=== PATIENT | male | born 1995 | race African-American/Black ===

== ENCOUNTER 2017-09-29 14:22 | Emergency (ER) | payer SELFPAY ==
[~2017-09-29] VITALS: Ht 185.4 cm; Wt 78.0 kg
[~2017-09-29 14:22] MED LIST: MUPIROCIN2 % EX
[2017-09-29 15:16] LABS: URINE BILIRUBIN - DIPSTICK NEGATIVE (NEGATIVE); URINE BLOOD DIPSTICK NEGATIVE (NEGATIVE); URINE COLOR YELLOW; URINE GLUCOSE - DIPSTICK NEGATIVE (NEGATIVE); URINE KETONE TRACE mg/dL (NEGATIVE); URINE NITRITE - DIPSTICK NEGATIVE (Negative); URINE PROTEIN - DIPSTICK TRACE mg/dL (NEG-TRACE); URINE SPECIFIC GRAVITY 1.025
[2017-09-29 15:23] LABS: URINE CLARITY CLEAR; URINE LEUK ESTERASE SMALL (NEGATIVE)
[2017-09-29 15:32] LABS: IMMATURE GRANULOCYTES 0.2 % (0.0-5.0); MEAN CORPUSCULAR HGB 30.6 pG CALC (26.0-32.0); MEAN CORPUSCULAR HGB CONC 34.6 g/L CALC (32.0-36.0); NEUT# 2.73 thou/uL (1.82-7.42); RED BLOOD COUNT 5.06 mill/uL (4.70-6.10); RED CELL DISTRI WIDTH 12.8 % (11.5-15.5)
[2017-09-29 15:35] LABS: URINE SQUAMOUS EPITHELIAL CELL FEW EPI/hpf (0-FEW)
[2017-09-29 15:36] LABS: HEMATOCRIT 44.8 % (39.0-50.0); HEMOGLOBIN 15.5 g/dl (14.0-18.0); MEAN CELL VOLUME 88.5 fL CALC (80.0-100.0)
[2017-09-29 15:55] LABS: ALBUMIN 4.5 g/dL (3.2-5.0); BILIRUBIN, TOTAL 0.4 mg/dL (0.0-1.4); BUN 12 mg/dL (8-21); BUN/CREATININE RATIO 14 (12-20 (CALC)); CARBON DIOXIDE 26 mmol/l (22-30); CHLORIDE 107 mmol/l (95-108); CREATININE 0.8 mg/dL (0.7-1.3); GFR > 60 ML/MIN (>=60 (CALC)); GFR FOR AFR.AMER. > 60 ML/MIN (>=60 (CALC)); LIPASE 133 u/l (23-300); SGOT/AST 24 u/l (17-59); SGPT/ALT 26 u/l (21-72); TOTAL PROTEIN 7.4 g/dL (6.3-8.2)
[2017-09-29 16:00] LABS: ALKALINE PHOSPHATASE 69 u/l (38-126); ANION GAP 14 (6-22 (CALC)); POTASSIUM 4.2 mmol/l (3.5-5.1); SODIUM 143 mmol/l (137-146)
[2017-09-29] MEDS ORDERED: ZOFRAN4 M1 PO (16:00)
[2017-09-29 16:14] VITALS: BP 109/66
== END 2017-09-29 16:22 | disposition home or self-care (01) | DRG 392 ==
LOC: ED 14:22
PROVIDERS: Family Medicine
DX: K52.9 Noninfective gastroenteritis and colitis, unspecified (principal); N39.0 Urinary tract infection, site not specified

== ENCOUNTER 2018-06-29 17:14 | Emergency (ER) | payer SELFPAY ==
[~2018-06-29] VITALS: Ht 185.4 cm; Wt 75.0 kg
[~2018-06-29 17:14] MED LIST changes: +ZOFRAN4 M1 PO
[2018-06-29 18:03] LABS: IMMATURE GRANULOCYTES 0.2 % (0.0-5.0); MEAN CELL VOLUME 89.2 fL CALC (80.0-100.0); MEAN CORPUSCULAR HGB 30.6 pG CALC (26.0-32.0); MEAN CORPUSCULAR HGB CONC 34.4 g/L CALC (32.0-36.0); NEUT# 2.6 thou/uL (1.82-7.42); RED BLOOD COUNT 4.34 mill/uL (4.70-6.10); RED CELL DISTRI WIDTH 12.7 % (11.5-15.5)
[2018-06-29 18:07] LABS: HEMATOCRIT 38.7 % (39.0-50.0); HEMOGLOBIN 13.3 g/dl (14.0-18.0)
[2018-06-29 18:16] LABS: ANION GAP 14 (6-22 (CALC)); BUN 13 mg/dL (9-20); BUN/CREATININE RATIO 15 (12-20 (CALC)); CARBON DIOXIDE 23 mmol/l (22-30); CHLORIDE 109 mmol/l (95-108); CREATININE 0.9 mg/dL (0.7-1.3); GFR > 60 ML/MIN (>=60 (CALC)); GFR FOR AFR.AMER. > 60 ML/MIN (>=60 (CALC)); POTASSIUM 3.7 mmol/l (3.5-5.1); SODIUM 142 mmol/l (137-146)
[2018-06-29 18:51] VITALS: BP 98/60
== END 2018-06-29 18:51 | disposition home or self-care (01) | DRG 312 ==
LOC: ED 17:14
PROVIDERS: Family Medicine
DX: R55 Syncope and collapse (principal); R42 Dizziness and giddiness; R00.1 Bradycardia, unspecified; F17.290 Nicotine dependence, other tobacco product, uncomplicated; Y92.810 Car as the place of occurrence of the external cause

== ENCOUNTER 2018-08-04 11:39 | Emergency (ER) | payer MEDICAID ==
[~2018-08-04] VITALS: Ht 185.4 cm; Wt 77.0 kg
[2018-08-04 12:34] LABS: URINE BILIRUBIN - DIPSTICK NEGATIVE (NEGATIVE); URINE BLOOD DIPSTICK NEGATIVE (NEGATIVE); URINE COLOR YELLOW; URINE GLUCOSE - DIPSTICK NEGATIVE (NEGATIVE); URINE KETONE NEGATIVE (NEGATIVE); URINE LEUK ESTERASE TRACE (NEGATIVE); URINE NITRITE - DIPSTICK NEGATIVE (Negative); URINE PH 5.5 (4.5-8.0); URINE PROTEIN - DIPSTICK NEGATIVE (NEG-TRACE); URINE SPECIFIC GRAVITY 1.025; URINE UROBILINOGEN - DIPSTICK 0.2 E.U./dL (0.2)
[2018-08-04 13:01] LABS: HEMATOCRIT 39.2 % (39.0-50.0); IMMATURE GRANULOCYTES 0.2 % (0.0-5.0); MEAN CORPUSCULAR HGB 30.5 pG CALC (26.0-32.0); MEAN CORPUSCULAR HGB CONC 33.2 g/L CALC (32.0-36.0); NEUT# 2.17 thou/uL (1.82-7.42); RED BLOOD COUNT 4.26 mill/uL (4.70-6.10); RED CELL DISTRI WIDTH 13.3 % (11.5-15.5)
[2018-08-04 13:23] LABS: ALBUMIN 4.4 g/dL (3.2-5.0); ALKALINE PHOSPHATASE 73 u/l (38-126); BILIRUBIN, TOTAL 0.3 mg/dL (0.0-1.4); BUN 16 mg/dL (9-20); BUN/CREATININE RATIO 18 (12-20 (CALC)); CARBON DIOXIDE 26 mmol/l (22-30); CHLORIDE 108 mmol/l (95-108); CREATININE 0.9 mg/dL (0.7-1.3); GFR > 60 ML/MIN (>=60 (CALC)); GFR FOR AFR.AMER. > 60 ML/MIN (>=60 (CALC)); SGOT/AST 19 u/l (17-59); SODIUM 143 mmol/l (137-146); TOTAL PROTEIN 7.2 g/dL (6.3-8.2)
[2018-08-04 13:24] LABS: ANION GAP 14 (6-22 (CALC)); POTASSIUM 4.6 mmol/l (3.5-5.1)
[2018-08-04] MEDS ORDERED: PYRIDIUM200 MG PO (13:27)
[2018-08-04] MEDS ORDERED: KEFLEX500 M1 PO (13:27)
[2018-08-04 13:39] VITALS: BP 111/69
== END 2018-08-04 13:45 | disposition home or self-care (01) ==
LOC: ED 11:39
PROVIDERS: Emergency Medicine
DX: N34.2 Other urethritis (principal); R35.0 Frequency of micturition

== ENCOUNTER 2019-03-11 | Emergency (ER) | payer MEDICAID ==
[~2019-03-11] MED LIST changes: +KEFLEX500 M1 PO; +PYRIDIUM200 MG PO
[2019-03-11] MEDS ORDERED: ONDANSETRON4 MG PO (23:43)
== END 2019-03-12 00:20 | disposition home or self-care (01) ==
DX: R11.2 Nausea with vomiting, unspecified (principal); R19.7 Diarrhea, unspecified

== ENCOUNTER 2019-07-15 19:46 | Emergency (ER) | payer MEDICAID ==
[~2019-07-15 19:46] MED LIST changes: +ONDANSETRON4 MG PO
[2019-07-15] MEDS ORDERED: KEFLEX500 M1 PO (22:27)
[2019-07-15 22:52] VITALS: BP 108/62
== END 2019-07-15 22:52 | disposition home or self-care (01) ==
LOC: ED 19:46
DX: S91.332A Puncture wound without foreign body, left foot, initial encounter (principal); W45.0XXA Nail entering through skin, initial encounter; Y93.89 Activity, other specified; Y92.007 Garden or yard of unspecified non-institutional (private) residence as the place of occurrence of the external cause

== ENCOUNTER 2020-09-03 14:16 | Emergency (ER) | payer MEDICAID ==
[~2020-09-03] VITALS: Ht 180.3 cm; Wt 68.0 kg
[2020-09-03] MEDS ORDERED: ONDANSETRON4 MG PO (17:18)
[2020-09-03 17:24] VITALS: BP 130/82
== END 2020-09-03 17:25 | disposition home or self-care (01) ==
LOC: ED 14:16
DX: R11.2 Nausea with vomiting, unspecified (principal); R19.7 Diarrhea, unspecified; Z20.822 Contact with and (suspected) exposure to COVID-19

== ENCOUNTER 2021-08-28 13:58 | Emergency (ER) | payer MEDICAID ==
[~2021-08-28] VITALS: Ht 180.3 cm; Wt 67.2 kg
[2021-08-28 15:58] VITALS: BP 112/62
== END 2021-08-28 15:59 | disposition home or self-care (01) ==
LOC: ED 13:58
DX: U07.1 COVID-19 (principal); M79.10 Myalgia, unspecified site; R51.9 Headache, unspecified